=== PATIENT | male | born 1980 | race Caucasian/White ===

== ENCOUNTER 2025-01-03 14:59 | Emergency (ER) | payer MEDICAID ==
[~2025-01-03] VITALS: Ht 170.2 cm; Wt 88.5 kg
[2025-01-03] MEDS ORDERED: ASPIRIN 81 MG TAB.CHEW ONE (15:15)
[2025-01-03] MEDS: ASPIRIN 81 MG TAB.CHEW PO ONE (15:21)
[2025-01-03] MEDS: IV NS 0.9% 500 ML BAG IV ONE (15:30)
[2025-01-03 15:35] LABS: PLATELET COUNT (AUTO) 276 K/uL (150-450); RED BLOOD CELL COUNT(AUTO) 4.67 MIL/uL (4.5-6.0); RED CELL DISTRIBUTION WIDTH 12.2 % (11.5-15.0); WHITE BLOOD COUNT (AUTO) 8.5 K/uL (4.3-11.0)
[2025-01-03 15:41] LABS: CALCIUM, SERUM 9.0 mg/dL (8.5-10.1); CREATININE 1.0 mg/dL (0.6-1.3); SODIUM SERUM 137 mmol/L (136-145); UREA NITROGEN, BLOOD 11 mg/dL (7-18)
[2025-01-03 15:57] LABS: ASPARTATE AMINOTRANSFERASE 117 U/L (15-37); NT-PRO BNP 15 pg/mL (0-125); TOTAL PROTEIN, SERUM 7.1 g/dL (6.4-8.2)
[2025-01-04] VITALS: BP 125/82; TEMP 97; O2SAT 97
== END 2025-01-04 02:58 | disposition short-term general hospital (02) ==
LOC: ER 15:05
DX: R07.2 Precordial pain (principal); R00.2 Palpitations; R42 Dizziness and giddiness; E11.9 Type 2 diabetes mellitus without complications; E78.00 Pure hypercholesterolemia, unspecified; I10 Essential (primary) hypertension
CPT/HCPCS: 99285; 93307; 71045; 93005; 85025; 80048; 80076; 36415; 84484 ×2; 83880; J7040